=== PATIENT | female | born 1975 | race Caucasian/White ===

== ENCOUNTER 2016-05-08 18:25 | Inpatient (IN) | payer OTHER ==
[~2016-05-08] VITALS: Ht 162.6 cm; Wt 64.7 kg
[2016-05-08] VITALS (9 sets, daily range): BP systolic 79–83; BP diastolic 41–55; PULSE 70–82; RESP 14–24
[2016-05-08] MEDS ORDERED: ACETAMINOPHEN 500 MG TAB PO STA (19:10)
[2016-05-08] MEDS ORDERED: SOD CHLORIDE 0.9% 1,000 ML IV STA (19:10)
[2016-05-08 19:43] LABS: BASOPHILS % 0.1 % (0.0-2.0); HEMATOCRIT 37.2 % (37.0-47.0); HEMOGLOBIN 12.6 g/dl (12.0-16.0); LYMPHOCYTES # 0.6 10^3/ul (0.8-2.9); LYMPHOCYTES % 12.2 % (15.0-51.0); MEAN CORPUSCULAR HEMOGLOBIN 30.8 pg (29.0-33.0); MEAN CORPUSCULAR HGB CONC 33.7 g/dl (32.0-37.0); MEAN CORPUSCULAR VOLUME 91.2 fl (82.0-101.0); MEAN PLATELET VOLUME 10.4 fl (7.4-10.4); MONOCYTE # 0.2 10^3/ul (0.3-0.9); MONOCYTES % 3.6 % (0.0-11.0); NEUTROPHIL # 4.1 10^3/ul (1.6-7.5); NEUTROPHILS % 84.1 % (39.0-77.0); PLATELET COUNT 136 10^3/UL (140-440); RED BLOOD COUNT 4.08 10^6/ul (4.20-5.40); RED CELL DISTRIBUTION WIDTH 14.3 % (11.5-14.5); UNCORRECTED WBC 4.9 10^3/ul (4.8-10.8); WHITE BLOOD COUNT 4.9 10^3/ul (4.8-10.8)
[2016-05-08 19:50] LABS: ADD UMIC YES; URINE BILIRUBIN (Dip) 2+ (NEGATIVE); URINE BLOOD (Dip) 3+ (NEGATIVE); URINE GLUCOSE (Dip) NEGATIVE (NEGATIVE); URINE KETONES (Dip) TRACE (NEGATIVE); URINE LEUKOCYTE ESTERASE (Dip) TRACE (NEGATIVE); URINE NITRITE (Dip) NEGATIVE (NEGATIVE); URINE TOTAL PROTEIN (Dip) 2+ (NEGATIVE); URINE UROBILINOGEN (Dip) 4.0 E.U./dL (0.1-1.0)
[2016-05-08 20:01] LABS: ALBUMIN 3.5 g/dl (3.3-4.9)
[2016-05-08 20:04] LABS: BILIRUBIN,INDIRECT 0.6 mg/dl (0-1.1); BILIRUBIN,TOTAL 0.6 mg/dl (0.2-1.3); CREATININE 0.89 mg/dl (0.44-1.00)
[2016-05-08 20:05] LABS: ALBUMIN/GLOBULIN RATIO 1.2; CALCIUM 8.9 mg/dl (8.4-10.2); TOTAL PROTEIN 6.4 g/dl (6.1-8.1)
[2016-05-08 20:06] LABS: CONDITION 1; URINE COLOR RED (YELLOW)
[2016-05-08 20:10] LABS: BACTERIA,URINE FEW; ICTOTEST POSITIVE (NEGATIVE); SQUAMOUS EPITHELIAL CELL,UR MODERATE; URINE RBCS >200 /HPF (0)
--- NOTE | 2016-05-08 20:35 | RADRPT ---
PROCEDURE: US Pelvis. CLINICAL INDICATION: Abdominal pain. Status post elective with continued bleeding. TECHNIQUE: Multiple sonographic images of the pelvis were obtained utilizing a transabdominal and endovaginal technique. The images were reviewed on a PACS workstation. COMPARISON: No. FINDINGS: The uterus is visualized and measures 8.1 cm sagittal by 4.9 cm AP by 6 cm transverse. The uterus i s retroverted. The endometrial echo complex is heterogeneous and thickened measuring 1.6 cm. There is persistent bl ood flow within the endometrium. There is no evidence for free fluid. The right ovary has a normal echotexture and measures 2 x 2.6 b y 1.7 cm . The left ovary has a normal echotexture and measures 1.6 by 2.9 x 2.1 cm. There is a mo derate amount of free fluid in the pelvis. No adnexal masses are noted. IMPRESSION: 1. Thickening and increased vascularity of the endometrium which measures 1.6 cm consistent with re tained products of conception. 2. Retroverted uterus. 3. Moderate free fluid in the pelvis. No abnormal adnexal mass is identified. 4. Findings were phoned to Dr. Anaya Myles. RPTAT:AAJJ Physician Yehuda Date Time Electronically viewed and signed by Physician Yehuda on 05/08/2016 20:34 /
--- NOTE | 2016-05-08 20:54 | ERA ---
ER Documentation Chief Complaint Date/Time DATE: 05/08/16 TIME: 20:48 Chief Complaint GENERAL BODYACHES WITH FEVER FOR FEW DAYS. S/P ABO 05/01/16 HPI This is a 41-year-old female presents to the emergency department complaining of continued vaginal bleeding pelvic pain tactile fever shaking and chills and generalized myalgias for the past 24 hours. The patient recently underwent an elective at [facility] on . She was given medication on May 01, believed to be misoprostol and returned on May 02 to have the same medication given. The patient was instructed to return to the [facility] clinic on May 14 for repeat ultrasound to ensure there is no retained products of conception. However the patient indicates that she had her lower abdominal cramping has been so severe that is 10 out of 10 in intensity with continued vaginal bleeding using roughly 1 suprapubic absorbency pad every 4 hours. She took 800 mg of Motrin at 6 PM, 3 hours prior to arrival. She is not currently on antibiotics but stated she did receive a dose of antibiotics on May 02 2015 ROS All systems reviewed and are negative except as per history of present illness. PMhx/Soc Medical and Surgical Hx: pt denies Medical Hx, pt denies Surgical Hx History of Surgery: Yes ( on 04/30) Anesthesia Reaction: No Hx Neurological Disorder: No Hx Respiratory Disorders: No Hx Cardiac Disorders: No Hx Psychiatric Problems: No Hx Alcohol Use: No Hx Substance Use: No Hx Tobacco Use: No Smoking Status: Never smoker Physical Exam Vitals Vital Signs Date Time Temp Pulse Resp B/P Pulse Ox O2 Delivery O2 Flow Rate FiO2 05/08/16 18:29 100.5 105 21 117/61 100 Physical Exam Constitutional:Well-developed. Well-nourished. HEENT:Normocephalic. Atraumatic.Pupils were equal round reactive to light. Moist mucous membranes.No tonsillar exudates. No conjunctival pallor. Neck: No nuchal rigidity. No lymphadenopathy. No posterior cervical spine tenderness or step-offs. Respiratory: Not using accessory muscles of respiration.Lungs were clear to auscultation bilaterally. No rhonchi. No rales. No wheezing. Cardiovascular: Regular rate regular rhythm.No murmurs. No rubs were appreciated.S1, S2 normal. Distal pulses are palpable 2+ bilaterally. GI: Abdomen was soft. Suprapubic tenderness. Non Distended. No pulsatile abdominal masses or bruits. No rebound. No guarding. Bowel sounds were present and normal. Muscle skeletal: Full range of motion of both the upper and lower extremities bilaterally.Normal muscle tone.No assymetrical calf tenderness or swelling. Skin: No petechia, no purpura. No lesions on the palms or the soles of the feet. No maculopapular rash. NEURO: Patient was alert, awake, orientated x3.No facial droop. Gait observed and normal with no ataxia.Speech had regular rate and rhythm. No focal neurological deficits. Result Diagram: 05/08/16192905/08/161929 Results 24 hrs Laboratory Tests Test 05/08/16 19:30 Alanine Aminotransferase (ALT/SGPT) 140IU/L Albumin 3.5g/dl Albumin/Globulin Ratio 1.20 Alkaline Phosphatase 184IU/L Anion Gap 14 Aspartate Amino Transf (AST/SGOT) 169IU/L Basophils # 0.010^3/ul Basophils % 0.1% Blood Urea Nitrogen 12mg/dl Calcium Level 8.9mg/dl Carbon Dioxide Level 26mmol/L Chloride Level 100mmol/L Creatinine 0.89mg/dl Direct Bilirubin 0.00mg/dl Eosinophils # 0.010^3/ul Eosinophils % 0.0% Globulin 2.90g/dl Glucose Level 109mg/dl Hematocrit 37.2% Hemoglobin 12.6g/dl Indirect Bilirubin 0.6mg/dl Lactic Acid Level 1.2mmol/L Lipase 94U/L Lymphocytes # 0.610^3/ul Lymphocytes % 12.2% Mean Corpuscular Hemoglobin 30.8pg Mean Corpuscular Hemoglobin Concent 33.7g/dl Mean Corpuscular Volume 91.2fl Mean Platelet Volume 10.4fl Monocytes # 0.210^3/ul Monocytes % 3.6% Neutrophils # 4.110^3/ul Neutrophils % 84.1% Nucleated Red Blood Cells # 0.010^3/ul Nucleated Red Blood Cells % 0.0/100WBC Platelet Count 04335^3/UL Potassium Level 4.0mmol/L Red Blood Count 4.0810^6/ul Red Cell Distribution Width 14.3% Sodium Level 136mmol/L Total Bilirubin 0.6mg/dl Total Protein 6.4g/dl Urine Bacteria FEW Urine Bilirubin 2+ Urine Clarity BLOODY Urine Color RED Urine Glucose NEGATIVE% Urine Hemoglobin 3+ Urine Ictotest POSITIVE Urine Ketones TRACE Urine Leukocyte Esterase TRACE Urine Microscopic RBC >200/HPF Urine Microscopic WBC 5-10/HPF Urine Nitrite NEGATIVE Urine Specific [place] 1.020 Urine Squamous Epithelial Cells MODERATE Urine Total Protein 2+ Urine Urobilinogen 4.0 E.U./dL Urine pH 5.5 White Blood Count 4.910^3/ul Current Medications Medications (Trade) Dose Ordered Sig/Florinda Route PRN Reason Start Time Stop Time Status Last Admin Dose Admin Sodium Chloride (NS) 1,000 ml @ 1,000 mls/hr Q1H STAT IV 05/08/16 19:10 05/08/16 20:09 DC 05/08/16 19:32 Acetaminophen (Tylenol Tab) 1,000 mg ONCE STAT PO 05/08/16 19:10 05/08/16 19:13 DC 05/08/16 19:32 Procedures/MDM This patient presented to the emergency department after an elective given misoprostol however the patient continued to have significant abdominal pain and a low-grade fever which was concerning for septic . The patient was given IV fluids and influenza was positive therefore she was given Tamiflu. The ultrasound was reviewed by myself as well as the [facility] Dr. Khan. The patient was given IV antibiotics in the emergency department after blood cultures and urine culture was obtained. She was given IV doxycycline and cefoxitin. Dr. Khan kindly stated she will admit the patient to [facility] for dilation and curettage to remove the retained products of conception. Departure Diagnosis: Primary Impression: Retained products of conception Additional Impression: Influenza Condition: Serious ALRYNRYANNEA May 08, 2016 20:54
[2016-05-08] MEDS ORDERED: ONDANSETRON 4 MG INJ IV PRN ×3 (21:00→23:30)
[2016-05-08] MEDS ORDERED: CEFOTAXIME 2 GM/50 ML (PMX) 50 ML IVPB ONE (21:00)
[2016-05-08] MEDS ORDERED: OSELTAMIVIR 75 MG CAP PO ONE (21:00)
[2016-05-08] MEDS ORDERED: DOXYCYCLINE 100 MG in SOD CHLORIDE 0.9% 250 ML IVPB SCH (21:00)
[2016-05-08] MEDS ORDERED: ACETAMINOPHEN 325 MG TAB PO PRN (21:00)
[2016-05-08 21:25] LABS: INR 1.38; PT RATIO 1.3
[2016-05-08 21:26] LABS: PARTIAL THROMBOPLASTIN TIME 32.1 Sec (25.0-35.0)
--- NOTE | 2016-05-08 21:51 | HP ---
Date/Time of Note Date/Time of Note DATE: 05/08/16 TIME: 21:34 Assessment/Plan VTE Prophylaxis VTE Prophylaxis Intervention: ambulation Assessment/Plan Chief Complaint/Hosp Course 1) Retained Products of Conception s/p medical 2) Influenza Problems: Assessment/Plan 1) Retained POC -Discussed with pt results of U/S. Given concern for retained products of conception, recommend evacuating the uterus with suction D&C and sharp curettage. Risks, benefits and alternatives of planned procedure were discussed with the patient in detail, including the risks of pain, infection, damage to nearby organs/tissues/structures, uterine perforation possibly requiring exploratory laparotomy and bleeding possibly requiring blood transfusion or hysterectomy. Blood transfusion risks, including infectious risks and transfusion-related reactions also discussed. Written consent for procedure obtained. NPO in anticipation of procedure -Given unclear clinical picture of septic vs retained POCs with influenza, will treat w/IV Abx as well. Pt started on Cefoxitin 2g IV q6 and Doxycycline 100mg IV q12 -Blood and urine cultures obtained prior to starting Abx -STI panel per pt request 2) Influenza -Pt with positive rapid flu test. Started on Tamiflu -Tylenol prn fever Plan d/w pt. Questions answered to patient's satisfaction. HPI/ROS Admit Date/Time Admit Date/Time Hx of Present Illness GYNECOLOGY ADMISSION H&P Pt is a 41yo who presents 7d s/p medical AB at [facility] for undesired IUP at <6wks. Pt states she has been having lower abdominal cramping and fevers for the last 2 days. Highest temperature was 104 at home yesterday which trended downwards with Ibuprofen and cool showers. Vaginal bleeding has continued since the procedure. Pt also reports general malaise and body aches. Denies cough or congestion. PMHx: Denies PSHx: Breast augmentation OB Hx: FT x1 w/son's at 3yo from meningitis, SAB x2, MAB x1 on 05/01 and 05/02. 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 Heavy bleeding. Using OCPs for contraception. New partner, not using condoms. Pt and partner reportedly each had neg STI screen prior to first sexual encounters. PROCEDURE: US Pelvis. CLINICAL INDICATION: Abdominal pain. Status post elective with continued bleeding. TECHNIQUE: Multiple sonographic images of the pelvis were obtained utilizing a transabdominal and endovaginal technique. The images were reviewed on a PACS workstation. COMPARISON: No. FINDINGS: The uterus is visualized and measures 8.1 cm sagittal by 4.9 cm AP by 6 cm transverse. The uterus is retroverted. The endometrial echo complex is heterogeneous and thickened measuring 1.6 cm. There is persistent blood flow within the endometrium. There is no evidence for free fluid. The right ovary has a normal echotexture and measures 2 x 2.6 by 1.7 cm . The left ovary has a normal echotexture and measures 1.6 by 2.9 x 2.1 cm. There is a moderate amount of free fluid in the pelvis. No adnexal masses are noted. IMPRESSION: 1. Thickening and increased vascularity of the endometrium which measures 1.6 cm consistent with retained products of conception. 2. Retroverted uterus. 3. Moderate free fluid in the pelvis. No abnormal adnexal mass is identified. PMH/Family/Social Past Medical History Medical History: no pertinent history Past Surgical History Past Surgical Hx: other (as per HPI) Family History Significant Family History: no pertinent family hx Social History Alcohol Use: none Smoking Status: Never smoker Drug Use: none Exam/Review of Systems Vital Signs Vitals Vital Signs Date Time Temp Pulse Resp B/P Pulse Ox O2 Delivery O2 Flow Rate FiO2 05/08/16 18:29 100.5 105 21 117/61 100 Exam Constitutional: alert, oriented, No distress Psych: nl mood/affect Respiratory: clear to auscultation Cardiovascular: regular rate and rhythm Gastrointestinal: bowel sounds, soft, tender (mild TTP lower quadrants diffusely), No distended, No firm, No mass, No rebound or guarding, No surgical scars Genitourinary - Female: nl adnexae, nl external genitalia, uterus (small, 6wk size uterus, mild fundal tenderness on BME), No CMT Extremities: No edema Neurological: nl mental status, nl speech Skin: No rash or lesions Labs Result Diagram: 05/08/16192905/08/161929 Medications Medications Current Medications Doxycycline Hyclate/Sodium Chloride (Vibramycin/NS) 250 ml @ 250 mls/hr ONCE IVPB ; Start 05/08/16 at 21:00 RONNY HANSON MD May 08, 2016 21:44
[2016-05-08] MEDS ORDERED: PROPOFOL 20 ML ONE (22:46)
[2016-05-08] MEDS ORDERED: FENTAnyl 50 MCG/ML VIAL ONE (22:46)
[2016-05-08] MEDS ORDERED: MIDAZOLAM 1 MG/ML 2 ML INJ ONE (22:46)
[2016-05-08] MEDS ORDERED: PHENYLephrine (100 MCG/ML) 5ML SYG ONE (22:54)
[2016-05-08] MEDS ORDERED: ONDANSETRON 4 MG INJ ONE (23:02)
[2016-05-08] MEDS ORDERED: DEXAMETHASONE 4 MG/ML 1 ML INJ ONE (23:03)
[2016-05-08] MEDS ORDERED: KETOROLAC 30 MG INJ ONE (23:03)
[2016-05-08] MEDS ORDERED: METOCLOPRAMIDE 10 MG INJ ONE (23:03)
--- NOTE | 2016-05-08 23:21 | OPR ---
Date/Time of Note Date/Time of Note DATE: 05/08/16 TIME: 23:16 Operative Report Procedure Date: May 08, 2016 Preoperative Diagnosis Retained Products of Conception Postoperative Diagnosis Retained Products of Conception Operation Performed Dilation and Curettage with suction and sharp curettage Surgeon: RONNY ALBERT MD Anesthesia: general Anesthesiologist: TEODORO MAX MD Estimated Blood Loss: 0 - 10 ml's Specimens Uterine curettings Complications: None Pt Condition Post Procedure: stable Disposition: PACU Indications 41yo presented to the ED 7d post medical with increasing abdominal pain and vaginal bleeding in the setting of fevers. Pelvic ultrasound revealed a thickened endometrial stripe concerning for retained products of conception. Pt also diagnosed with influenza. Operative Findings Products of conception noted in the suction tubing during the procedure. All four quadrants of the uterus was found to have a gritty texture following the procedure. Procedure Description The patient was brought to the operating room with an IV in place, placed on the operating room table in supine position and general anesthesia was adminstered. She was positioned in annmarie stirrups and prepped and draped in the normal sterile fashion. The bladder was emptied using a red albert catheter. A weighted speculum was placed in the vaginal vault. The cervix was grasped with a single-toothed tenaculum at the 12 o'clock position and the cervix was serially dilated easily to accommodate a 7mm rigid curette. The uterus was evacuated using the electric suction device. A sharp curet was also used to gently scrape the uterus. Currettings were collected on a Telfa pad and handed off the field to be sent to pathology along with the specimen from the suction device. The tenaculum was removed and the tenaculum sites were noted to be hemostatic. Minimal vaginal bleeding was noted and the speculum was removed. The patient's perineum was cleaned and her legs were brought back down to the full supine position. She was awakened and transported to the recovery room in excellent condition. RONNY ALBERT MD May 08, 2016 23:21
[2016-05-08] MEDS ORDERED: MEPERIDINE 25 MG INJ IV PRN (23:30)
[2016-05-08] MEDS ORDERED: HYDROmorphONE (0.2 MG/ML) 10ML SYG IV PRN ×2 (23:30)
[2016-05-08] MEDS ORDERED: morphine (1 MG/ML) 10ML SYRINGE IV PRN ×3 (23:30)
[2016-05-08] MEDS ORDERED: DIPHENHYDRAMINE 50 MG INJ IV PRN (23:30)
[2016-05-08] MEDS ORDERED: ACETAMINOPHEN 500 MG TAB PO PRN (23:30)
[2016-05-09] VITALS (9 sets, daily range): BP systolic 79–104; BP diastolic 45–55; PULSE 74–90; RESP 16–25; Ht 162.6 cm; Wt 64.7 kg
[2016-05-09] MEDS ORDERED: EPHEDrine SULFATE 50 MG/5 ML SYG ONE (00:20)
--- NOTE | 2016-05-09 05:47 | QN ---
Documentation Comment [employer]ETING [employer]JECT LEAD AST and ALT noted to be elevated. Hep panel ordered and CMP to be repeated this AM. RONNY HANSON MD May 09, 2016 05:46
[2016-05-09] MEDS ORDERED: CEFOTAXIME 1 GM INJ IM SCH (06:00)
[2016-05-09] MEDS: LACTATED RINGER'S 1,000 ML IV SCH ×3 (06:03→18:36)
[2016-05-09 06:12] LABS: HAAIG REFLEX REFLEX FILED
[2016-05-09 06:30] LABS: BASOPHILS % 0.1 % (0.0-2.0); HEMATOCRIT 33.5 % (37.0-47.0); HEMOGLOBIN 11.4 g/dl (12.0-16.0); LYMPHOCYTES # 1.1 10^3/ul (0.8-2.9); MEAN CORPUSCULAR HEMOGLOBIN 30.8 pg (29.0-33.0); MEAN CORPUSCULAR HGB CONC 33.9 g/dl (32.0-37.0); MEAN CORPUSCULAR VOLUME 90.9 fl (82.0-101.0); MEAN PLATELET VOLUME 10.9 fl (7.4-10.4); MONOCYTES % 0.8 % (0.0-11.0); NEUTROPHIL # 4.4 10^3/ul (1.6-7.5); NEUTROPHILS % 79.1 % (39.0-77.0); PLATELET COUNT 117 10^3/UL (140-440); RED BLOOD COUNT 3.69 10^6/ul (4.20-5.40); RED CELL DISTRIBUTION WIDTH 14.4 % (11.5-14.5); UNCORRECTED WBC 5.5 10^3/ul (4.8-10.8); WHITE BLOOD COUNT 5.5 10^3/ul (4.8-10.8)
[2016-05-09] MEDS ORDERED: CEFOTAXIME 1 GM/50 ML (PMX) 50 ML IVPB SCH (06:30)
[2016-05-09 06:34] LABS: CONDITION 1
--- NOTE | 2016-05-09 06:49 | DS ---
Date/Time of Note Date/Time of Note DATE: 05/09/16 TIME: 06:45 Discharge Summary Admission/Discharge Info Admit Date/Time May 09, 2016 at 01:40 Discharge Date/Time May 13, 2016 at 16:00 Final Diagnosis 1) Retained Products of Conception 2) Influenza 3) Urosepsis Patient Condition: Good Consults Dr. Uday Rivera, Infectious Disease Procedures Dilation and Curettage Hx of Present Illness Pt is a 41yo who presented to the ED 7d s/p medical AB at [facility] for undesired intrauterine at <6wks. Pt c/o lower abdominal cramping and fevers for 2 days. Highest temperature was 104 at home on the day prior to admission which trended downwards with Ibuprofen and cool showers. Vaginal bleeding has continued since the procedure. On presentation, pt also reports general malaise and body aches. Denies cough or congestion. PMHx: Denies PSHx: Breast augmentation OB Hx: FT x1 w/son's at 3yo from meningitis, SAB x2, MAB x1 on 05/01 and 05/02. 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 Heavy bleeding. Using OCPs for contraception. New partner, not using condoms. Pt and partner reportedly each had neg STI screen prior to first sexual encounters. PROCEDURE: US Pelvis. CLINICAL INDICATION: Abdominal pain. Status post elective with continued bleeding. TECHNIQUE: Multiple sonographic images of the pelvis were obtained utilizing a transabdominal and endovaginal technique. The images were reviewed on a PACS workstation. COMPARISON: No. FINDINGS: The uterus is visualized and measures 8.1 cm sagittal by 4.9 cm AP by 6 cm transverse. The uterus is retroverted. The endometrial echo complex is heterogeneous and thickened measuring 1.6 cm. There is persistent blood flow within the endometrium. There is no evidence for free fluid. The right ovary has a normal echotexture and measures 2 x 2.6 by 1.7 cm . The left ovary has a normal echotexture and measures 1.6 by 2.9 x 2.1 cm. There is a moderate amount of free fluid in the pelvis. No adnexal masses are noted. IMPRESSION: 1. Thickening and increased vascularity of the endometrium which measures 1.6 cm consistent with retained products of conception. 2. Retroverted uterus. 3. Moderate free fluid in the pelvis. No abnormal adnexal mass is identified. Hospital Course Pt received IV antibiotics in the ED and the first dose of Tamiflu and was taken to the OR for an uncomplicated D&C. The specimen was sent to Pathology. Blood and Urine cultures obtained in the ED grew Strep Pyogenes, Group A. For urosepsis, an Infectious disease consult was requested and the patient was initially started on Ceftriaxone and Clindamycin. The latter was d/c'd after one day, however the patient was continued on IV Ceftriaxone and Tamiflu during the remainder of the hospital course and has remained afebrile. At the time of discharge, the patient had resolved abdominal pain and scant vaginal bleeding. Her platelets, which had initially trended downwards were trending upwards and AST/ALT were elevated and relatively stable at 84/105. Anemia was noted with a Hgb of 10.4. Repeat Blood Cultures showed No Growth To Date x2 days. Home health nursing was arranged for the remaining doses of Ceftriaxone. The patient will also complete a 7 day course of Tamiflu. The patient has been instructed to follow-up with her primary care doctor within the next week and [employer]OOK[employer] ST[employer]ER this week as scheduled for contraception. Follow-up Plan Pt is advised to keep her appointment at [facility] for follow-up on and to initiate contraception. She should follow-up with a [employer] BOOKED [employer] STITCHER 2 weeks thereafter and/or for contraception, if she is unable to obtain her desired method at the PP follow-up. She should follow-up with her PCP within 1 week. Pending Labs Laboratory Tests Test 05/08/16 19:30 05/08/16 21:00 05/08/16 22:00 05/09/16 04:55 Alanine Aminotransferase (ALT/SGPT) 140IU/L (13-69) Pending Albumin 3.5g/dl (3.3-4.9) Pending Albumin/Globulin Ratio 1.20 Pending Alkaline Phosphatase 184IU/L (42-121) Pending Anion Gap 14 (8-16) Pending Aspartate Amino Transf (AST/SGOT) 169IU/L (15-46) Pending Basophils # 0.010^3/ul (0.0-0.1) 0.010^3/ul (0.0-0.1) Basophils % 0.1% (0.0-2.0) 0.1% (0.0-2.0) Blood Urea Nitrogen 12mg/dl (7-20) Pending Calcium Level 8.9mg/dl (8.4-10.2) Pending Carbon Dioxide Level 26mmol/L (21-31) Pending Chloride Level 100mmol/L (97-110) Pending Creatinine 0.89mg/dl (0.44-1.00) Pending Direct Bilirubin 0.00mg/dl (0.00-0.20) Pending Eosinophils # 0.010^3/ul (0.0-0.5) 0.010^3/ul (0.0-0.5) Eosinophils % 0.0% (0.0-7.0) 0.0% (0.0-7.0) Globulin 2.90g/dl (1.3-3.2) Pending Glucose Level 109mg/dl (70-220) Pending Hematocrit 37.2% (37.0-47.0) 33.5% (37.0-47.0) Hemoglobin 12.6g/dl (12.0-16.0) 11.4g/dl (12.0-16.0) Indirect Bilirubin 0.6mg/dl (0-1.1) Pending Lactic Acid Level 1.2mmol/L (0.5-2.2) Lipase 94U/L (23-300) Lymphocytes # 0.610^3/ul (0.8-2.9) 1.110^3/ul (0.8-2.9) Lymphocytes % 12.2% (15.0-51.0) 20.0% (15.0-51.0) Mean Corpuscular Hemoglobin 30.8pg (29.0-33.0) 30.8pg (29.0-33.0) Mean Corpuscular Hemoglobin Concent 33.7g/dl (32.0-37.0) 33.9g/dl (32.0-37.0) Mean Corpuscular Volume 91.2fl (82.0-101.0) 90.9fl (82.0-101.0) Mean Platelet Volume 10.4fl (7.4-10.4) 10.9fl (7.4-10.4) Monocytes # 0.210^3/ul (0.3-0.9) 0.010^3/ul (0.3-0.9) Monocytes % 3.6% (0.0-11.0) 0.8% (0.0-11.0) Neutrophils # 4.110^3/ul (1.6-7.5) 4.410^3/ul (1.6-7.5) Neutrophils % 84.1% (39.0-77.0) 79.1% (39.0-77.0) Nucleated Red Blood Cells # 0.010^3/ul (0.0-0.0) 0.010^3/ul (0.0-0.0) Nucleated Red Blood Cells % 0.0/100WBC (0.0-0.0) 0.0/100WBC (0.0-0.0) Platelet Count 15199^3/UL (140-440) 91929^3/UL (140-440) Potassium Level 4.0mmol/L (3.5-5.1) Pending Red Blood Count 4.0810^6/ul (4.20-5.40) 3.6910^6/ul (4.20-5.40) Red Cell Distribution Width 14.3% (11.5-14.5) 14.4% (11.5-14.5) Sodium Level 136mmol/L (135-144) Pending Total Bilirubin 0.6mg/dl (0.2-1.3) Pending Total Protein 6.4g/dl (6.1-8.1) Pending Urine Bacteria FEW Urine Bilirubin 2+ (NEGATIVE) Urine Clarity BLOODY (CLEAR) Urine Color RED (YELLOW) Urine Glucose NEGATIVE% (NEGATIVE) Urine Hemoglobin 3+ (NEGATIVE) Urine Ictotest POSITIVE (NEGATIVE) Urine Ketones TRACE (NEGATIVE) Urine Leukocyte Esterase TRACE (NEGATIVE) Urine Microscopic RBC >200/HPF (0) Urine Microscopic WBC 5-10/HPF (0) Urine Nitrite NEGATIVE (NEGATIVE) Urine Specific [place] 1.020 (1.003-1.030) Urine Squamous Epithelial Cells MODERATE Urine Total Protein 2+ (NEGATIVE) Urine Urobilinogen 4.0 E.U./dL (0.1-1.0) Urine pH 5.5 (5.0-9.0) White Blood Count 4.910^3/ul (4.8-10.8) 5.510^3/ul (4.8-10.8) Activated Partial Thromboplast Time 32.1Sec (25.0-35.0) Beta HCG, Quantitative 859.4mIU/ml INR International Normalized Ratio 1.38 Prothrombin Time 17.0Sec (12.2-14.2) Prothrombin Time Ratio 1.3 HIV (1&2) Antibody NEGATIVE (NEGATIVE) Blood Morphology Comment Hepatitis B Core Total Antibody Pending Hepatitis B Surface Antigen Pending Hepatitis C Antibody Pending Microbiology Date/Time Source Procedure Growth Status 05/08/16 19:30 Nasopharyngeal Influenza Types A,B Direct EIA - Final Complete RONNY HANSON MD May 09, 2016 06:49
--- NOTE | 2016-05-09 06:51 | PD.PPDC ---
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 Follow-up with CVT RN 2 weeks after [facility] appointment.) Return to clinic for CVT RN Instructions: Fever greater than 101 Chills Worsening abdominal pain Excessive Vaginal Bleeding More than 2 pads per hour Unable to tolerate diet RONNY HANSON MD May 09, 2016 06:51
[2016-05-09] MEDS ORDERED: CEPASTAT LOZENGE MT PRN (07:00)
[2016-05-09 07:24] LABS: ANION GAP 11 (8-16); POTASSIUM 4.2 mmol/L (3.5-5.1); SODIUM 140 mmol/L (135-144)
[2016-05-09 07:25] LABS: ALANINE AMINOTRANSFERASE 96 IU/L (13-69); ALBUMIN 2.7 g/dl (3.3-4.9); ALKALINE PHOSPHATASE 136 IU/L (42-121); ASPARTATE AMINO TRANSFERASE 88 IU/L (15-46); BILIRUBIN,INDIRECT 0.5 mg/dl (0-1.1); BILIRUBIN,TOTAL 0.5 mg/dl (0.2-1.3); BLOOD UREA NITROGEN 9 mg/dl (7-20); CARBON DIOXIDE 24 mmol/L (21-31); CHLORIDE 109 mmol/L (97-110); CREATININE 0.72 mg/dl (0.44-1.00); GLUCOSE 150 mg/dl (70-220); TOTAL PROTEIN 5.4 g/dl (6.1-8.1)
[2016-05-09 07:26] LABS: CALCIUM 8.5 mg/dl (8.4-10.2)
[2016-05-09 08:29] LABS: HEPATITIS B CORE ANTIBODY NEGATIVE (NEGATIVE)
[2016-05-09] MEDS: OSELTAMIVIR 75 MG CAP PO SCH ×2 (08:47→20:55)
[2016-05-09] MEDS ORDERED: DOXYCYCLINE 100 MG TAB PO SCH (09:00)
[2016-05-09] MEDS ORDERED: CEFOTAXIME 1 GM INJ IVPB SCH (14:00)
--- NOTE | 2016-05-09 14:14 | QN ---
Documentation Comment Laborist S/P D and C for retained POC after a TAB at [facility]. Pt was febrile on admission and had elevated LFT's. She also tested positive in the ER for influenza B. Pt still has some pelvic pain/tenderness. Pt appears well otherwise. T=97.6 (last febrile at 1800 on 05/08) BP= 90/55. Abdomen soft, trace tenderness above pubis. Minimal bleeding noted. Extremities NT, no skin changes. WBC 5.5. Hgb 11.4. Plts 117K ( decreasing). ALT/AST 96/88 (improving). Urine cx + for strep pyogenes. Blood cx + for gram positive cocci. P: Called infectious disease consult. Spoke to the [employer] [facility] (for Dr Rivera) who will come to see her today. Questions asked were which antibiotics to change to, duration of IV antibiotic therapy. She is changing her to Rocephin and Clindamycin ( the second, per my request). Tamiflu needs to be continued x 7 days. IV therapy will be continued for a long period of time (2 weeks?), pending final ID of the blood culture. Also agreed that we could d/c the Doxycycline. Will repeat all labs in the morning. PRIYANKA SORENSEN MD May 09, 2016 14:13
[2016-05-09] MEDS: CLINDAMYCIN 900 MG/D5W (PMX) 50 ML IVPB SCH ×2 (15:35→22:08)
[2016-05-09] MEDS: CEFTRIAXONE 2 GM/50 ML (PMX) 50 ML IVPB SCH (15:35)
[2016-05-09] MEDS: LACTOBACILLUS CHEW TAB PO SCH ×2 (15:36→20:55)
--- NOTE | 2016-05-09 16:38 | CONS ---
DATE OF ADMISSION: 05/09/2016 DATE OF CONSULTATION: 05/09/2016 TYPE OF CONSULTATION: Infectious Disease. REASON FOR CONSULTATION: Antibiotic management. HISTORY OF PRESENT ILLNESS: Katarina Chery is a 41-year-old female who comes in with retained produ cts of conception, status post medical . Patient is a 41-year-old 4, para 1 who pre sents 7 days status post medical at [facility] for undesired at less than 6 weeks. She has been having lower abdominal cramping and fevers for the last 2 days prior to admi ssion with a temperature of 104 at home on 05/07/2016. She has been taking ibuprofen and cold showe rs. Vaginal bleeding has continued since the procedure. She reports general malaise and body aches . Denies cough or congestion. PAST MEDICAL HISTORY: Breast augmentation. Gives a history that her son of meningitis at 3 ye ars old. An ultrasound of the pelvis showed multiple sonographic images of the pelvis, showing thickened and increased vascularity of the endometrium which measures 1.6 cm, consistent with retained products o f conception, retroverted uterus, moderate free fluid in the pelvis. No abnormal adnexal mass. On 05/08/2016, she was taken to the operating room and she had a dilatation and curettage with suction and sharp curettage, and she tolerated the procedure very well. She is status post D and C. She te sted positive for influenza B in the emergency room. She still has some pelvic pain. We were dennis d. Her white count was 5.5, hemoglobin 11.4. Her ALT, AST were improving. Urine cultures positive for strep pyogenes. Blood cultures were positive with gram-positive cocci. PAST SURGICAL HISTORY: Operations as outlined. FAMILY HISTORY: Noncontributory. SOCIAL HISTORY: She does not smoke, drink or abuse drugs. ALLERGIES: NONE TO PENICILLIN, SULFA OR FOODS. MEDICATIONS: Per chart. REVIEW OF SYSTEMS: As per HPI. PHYSICAL EXAMINATION: GENERAL: The patient is a well-developed, well-nourished female who is alert, responsive, in no acu te distress. VITAL SIGNS: Stable. She is afebrile. SKIN: Without generalized rash. HEENT: Within normal limits. NECK: Supple. LYMPH NODES: None palpable. CHEST: Decreased breath sounds at the bases. HEART: Without murmur or gallop. ABDOMEN: Soft, somewhat tender suprapubically without organosplenomegaly or masses. EXTREMITIES: Without cyanosis, clubbing, or edema. RECTAL AND GENITAL: Deferred. NEUROLOGIC: No focal neurological abnormality. IMPRESSION AND PLAN: Will start the patient on clindamycin and ceftriaxone. She has a urosepsis wi th strep pyogenes, group A strep, which is only sensitive to penicillin. SHE IS NOT ALLERGIC TO ANY THING. We can discontinue the clindamycin tomorrow, continue her on ceftriaxone. Dictated By: JASVIR ORDONEZ MD, JD/JOE Conf#: [id number] DID#: [id number]
[2016-05-10 06:00] LABS: ALBUMIN 2.8 g/dl (3.3-4.9)
[2016-05-10 06:01] LABS: POTASSIUM 3.1 mmol/L (3.5-5.1)
[2016-05-10 06:03] LABS: ALBUMIN/GLOBULIN RATIO 1.16; BILIRUBIN,INDIRECT 0.1 mg/dl (0-1.1); BILIRUBIN,TOTAL 0.1 mg/dl (0.2-1.3); CREATININE 0.73 mg/dl (0.44-1.00); TOTAL PROTEIN 5.2 g/dl (6.1-8.1)
[2016-05-10 06:04] LABS: CALCIUM 8.2 mg/dl (8.4-10.2)
[2016-05-10] MEDS: CLINDAMYCIN 900 MG/D5W (PMX) 50 ML IVPB SCH ×2 (06:05→13:48)
[2016-05-10] MEDS: LACTATED RINGER'S 1,000 ML IV SCH (06:05)
[2016-05-10 06:53] LABS: HEMATOCRIT 29.6 % (37.0-47.0); HEMOGLOBIN 10.1 g/dl (12.0-16.0); LYMPHOCYTES # 2.4 10^3/ul (0.8-2.9); LYMPHOCYTES % 51.5 % (15.0-51.0); MEAN CORPUSCULAR HEMOGLOBIN 31.1 pg (29.0-33.0); MEAN CORPUSCULAR HGB CONC 34.2 g/dl (32.0-37.0); MEAN CORPUSCULAR VOLUME 90.7 fl (82.0-101.0); MEAN PLATELET VOLUME 11.3 fl (7.4-10.4); MONOCYTE # 0.3 10^3/ul (0.3-0.9); MONOCYTES % 5.5 % (0.0-11.0); PLATELET COUNT 128 10^3/UL (140-440); RED BLOOD COUNT 3.26 10^6/ul (4.20-5.40); RED CELL DISTRIBUTION WIDTH 14.4 % (11.5-14.5); UNCORRECTED WBC 4.7 10^3/ul (4.8-10.8); WHITE BLOOD COUNT 4.7 10^3/ul (4.8-10.8)
[2016-05-10 07:00] VITALS: BP 99/58; RESP 20
[2016-05-10 07:15] LABS: CONDITION 1; LH ANALYZER COMMENTS 1
[2016-05-10] MEDS: OSELTAMIVIR 75 MG CAP PO SCH ×2 (09:09→20:46)
[2016-05-10] MEDS: LACTOBACILLUS CHEW TAB PO SCH ×3 (09:09→20:46)
[2016-05-10] MEDS: LACTATED RINGER S IV SCH ×2 (15:00→22:00)
[2016-05-10] MEDS: CEFTRIAXONE 2 GM/50 ML (PMX) 50 ML IVPB SCH (15:00)
[2016-05-10] MEDS: POTASSIUM CHLORIDE IV SCH ×2 (15:00→22:00)
[2016-05-10] MEDS: IBUPROFEN 600 MG TAB PO PRN (17:01)
--- NOTE | 2016-05-10 18:51 | PN ---
DATE: 05/10/2016 SUBJECTIVE: No acute changes. The patient is alert, feels good, looks comfortable, no fevers overn ight. MICROBIOLOGY: Blood and urine culture growing Strep pyogenes group A with pending susceptibilities. Influenza swab was positive for influenza B. ANTIMICROBIALS: The patient is on Rocephin, clindamycin and Tamiflu. PHYSICAL EXAMINATION: GENERAL: This is a well-nourished, well-developed middle-aged woman who is alert, in no distress. HEENT: Head atraumatic, normocephalic. Sclerae anicteric. Buccal mucosa pink. NECK: Supple. CHEST: Rise symmetrical. Breath sounds clear. HEART: S1, S2. ABDOMEN: Soft. Bowel tones present. EXTREMITIES: Without cyanosis. ASSESSMENT: 1. Strep pyogenes bacteremia secondary to urinary tract infection. 2. Influenza B. 3. Status post dilation and curettage for part of conception. PLAN: The patient remains stable. We are going to repeat blood cultures, discontinue clindamycin. Keep her on Rocephin, continue Tamiflu for 7 days. Once blood cultures negative, will discuss disc harge planning. The patient will need to be on IV antibiotics for at least 7 days after which we wi ll switch her to p.o. We will await for final sensitivities. Dictated By: SRIDEVI PRAKASH FLATWORK PRESSER for JASVIR JACKSON/JOE Conf#: [id number] DID#: [id number]
[2016-05-10 20:53] VITALS: BP 103/55; PULSE 74; RESP 20
--- NOTE | 2016-05-10 23:45 | QN ---
Documentation Comment HD #2 s/p incomplete AB and with sepsis either due to urosepsis as urine and blood cx's with the same bacteria or the sepsis could have emanated from her uterus. Culprit is Group A strep pyogenes. Currently on Rocephin, Clindamycin d /lucia today. Pt appears well and in good spirits. Pt states she is feeling better and much less weak. T= 98.4, BP 103/55. Plts were 128K (increasing after heading down). Hgb 10. ALT/AST 99/97 which is actually slightly higher than yesterday. K+ was 3.1 so supplemented her IVF's with K+. Continuing care and appreciating infectious disease input. Labs to be repeated in the AM. Pt states she may be able to complete her 7 days of IV therapy at home as long as her labs normalize first. She will be completing a 14 day course of p.o. ABX once the IV therapy is completed. PRIYANKA SORENSEN MD May 10, 2016 23:45
[2016-05-11] MEDS: LACTATED RINGER S IV SCH ×4 (03:06→14:00)
[2016-05-11] MEDS: POTASSIUM CHLORIDE IV SCH ×4 (03:06→14:00)
[2016-05-11 06:08] LABS: POTASSIUM 4.2 mmol/L (3.5-5.1)
[2016-05-11 06:10] LABS: ALBUMIN/GLOBULIN RATIO 1.25; CREATININE 0.75 mg/dl (0.44-1.00); TOTAL PROTEIN 5.4 g/dl (6.1-8.1)
[2016-05-11 06:11] LABS: CALCIUM 8.9 mg/dl (8.4-10.2)
[2016-05-11 07:00] VITALS: BP 128/60; RESP 18
[2016-05-11] MEDS: OSELTAMIVIR 75 MG CAP PO SCH ×2 (09:19→20:46)
[2016-05-11] MEDS: LACTOBACILLUS CHEW TAB PO SCH ×3 (09:19→20:46)
[2016-05-11] MEDS: IBUPROFEN 600 MG TAB PO PRN (10:48)
[2016-05-11 10:55] LABS: HEMATOCRIT 30.6 % (37.0-47.0); HEMOGLOBIN 10.4 g/dl (12.0-16.0); LYMPHOCYTES % 70.6 % (15.0-51.0); MEAN CORPUSCULAR HEMOGLOBIN 30.6 pg (29.0-33.0); MEAN PLATELET VOLUME 11.7 fl (7.4-10.4); NEUTROPHILS % 16.7 % (39.0-77.0); PLATELET COUNT 178 10^3/UL (140-440); RED CELL DISTRIBUTION WIDTH 13.9 % (11.5-14.5); WHITE BLOOD COUNT 5.2 10^3/ul (4.8-10.8)
[2016-05-11 10:56] LABS: BASOPHILS % 0.4 % (0.0-2.0); EOSINOPHILS # 0.1 10^3/ul (0.0-0.5); EOSINOPHILS % 1.7 % (0.0-7.0); LYMPHOCYTES # 3.7 10^3/ul (0.8-2.9); MONOCYTE # 0.3 10^3/ul (0.3-0.9); MONOCYTES % 7.1 % (0.0-11.0); NEUTROPHIL # 0.9 10^3/ul (1.6-7.5)
--- NOTE | 2016-05-11 14:35 | CONS ---
Date/Time of Note Date/Time of Note DATE: 05/11/16 TIME: 14:34 Assessment/Plan Assessment/Plan Chief Complaint/Hosp Course SUBJECTIVE: No acute changes. The patient is alert, feels good, looks comfortable, no fevers overnight. MICROBIOLOGY: Blood and urine culture growing Strep pyogenes group A with pending susceptibilities. Influenza swab was positive for influenza B. ANTIMICROBIALS: Rocephin, Tamiflu. PHYSICAL EXAMINATION: GENERAL: This is a well-nourished, well-developed middle-aged woman who is alert, in no distress. HEENT: Head atraumatic, normocephalic. Sclerae anicteric. Buccal mucosa pink. NECK: Supple. CHEST: Rise symmetrical. Breath sounds clear. HEART: S1, S2. ABDOMEN: Soft. Bowel tones present. EXTREMITIES: Without cyanosis. ASSESSMENT: 1. Strep pyogenes bacteremia secondary to urinary tract infection. 2. Influenza B. 3. Status post dilation and curettage for part of conception. PLAN: The patient remains stable. Continue abx, f/u repeat blood cultures, complete Tamiflu for total of 7 days. DW staff Problems: Consultation Date/Type/Reason Admit Date/Time May 09, 2016 at 01:40 Initial Consult Date Type of Consultation: ID Exam/Review of Systems Vital Signs Vitals Vital Signs Date Time Temp Pulse Resp B/P Pulse Ox O2 Delivery O2 Flow Rate FiO2 05/11/16 07:00 98.3 18 128/60 Room Air 05/10/16 20:53 74 98 05/08/16 23:12 6.0 Intake and Output 05/10/16 05/10/16 05/11/16 15:00 23:00 07:00 Intake Total 925 ml 225 ml 1365 ml Balance 925 ml 225 ml 1365 ml Results Result Diagram: 05/11/16 0515 05/11/16 0515 Results 24 hrs Laboratory Tests Test 05/10/16 17:08 05/11/16 05:15 Bedside Glucose 136 Alanine Aminotransferase (ALT/SGPT) 105 H Albumin 3.0 L Albumin/Globulin Ratio 1.25 Alkaline Phosphatase 148 H Anion Gap 13 Aspartate Amino Transf (AST/SGOT) 84 H Basophils # 0.0 Basophils % 0.4 Blood Urea Nitrogen 6 L Calcium Level 8.9 Carbon Dioxide Level 28 Chloride Level 105 Creatinine 0.75 Direct Bilirubin 0.00 Eosinophils # 0.1 Eosinophils % 1.7 Globulin 2.40 Glucose Level 84 # Hematocrit 30.6 L Hemoglobin 10.4 L Indirect Bilirubin 0.0 Lymphocytes # 3.7 H Lymphocytes % 70.6 H Mean Corpuscular Hemoglobin 30.6 Mean Corpuscular Hemoglobin Concent 34.0 Mean Corpuscular Volume 90.0 Mean Platelet Volume 11.7 H Monocytes # 0.3 Monocytes % 7.1 Neutrophils # 0.9 L Neutrophils % 16.7 L Nucleated Red Blood Cells # 0.0 Nucleated Red Blood Cells % 0.0 Platelet Count 178 # Potassium Level 4.2 Red Blood Count 3.40 L Red Cell Distribution Width 13.9 Sodium Level 142 Total Bilirubin 0.0 L Total Protein 5.4 L White Blood Count 5.2 Medications Medications Current Medications Ibuprofen (Motrin) 600 mg Q6 PRN PO PAIN Last administered on 05/11/16 10:48; Admin Dose 600 MG; Start 05/08/16 at 23:30 Acetaminophen (Tylenol Tab) 1,000 mg Q6H PRN PO FEVER; Start 05/08/16 at 23:30 Ondansetron HCl (Zofran Inj) 4 mg Q4 PRN IV NAUSEA AND/OR VOMITING; Start 05/08 at 23:30 Oseltamivir Phosphate (Tamiflu) 75 mg BID PO Last administered on 05/11/16 09: 19; Admin Dose 75 MG; Start 05/09/16 at 09:00 Phenol 1 lozenge 1 lozenge Q1H PRN MT throat pain; Start 05/09/16 at 07:00 Ceftriaxone Sodium (Rocephin) 50 ml @ 100 mls/hr Q24H IVPB Last administered on 05/10/16 15:00; Admin Dose 100 MLS/HR; Start 05/09/16 at 15:00 Lactobacillus Acidoph/ Bulgaricus 1 tab 1 tab TID PO Last administered on 09:19; Admin Dose 1 TAB; Start 05/09/16 at 14:30 Potassium Chloride/Lactated Ringer's (KCl/Lr) 1,000 ml @ 125 mls/hr Q8H IV Last administered on 05/11/16 11:26; Admin Dose 125 MLS/HR; Start 05/10/16 at 14:00 SRIDEVI PRAKASH NP May 11, 2016 14:35
[2016-05-11] MEDS: CEFTRIAXONE 2 GM/50 ML (PMX) 50 ML IVPB SCH (15:45)
--- NOTE | 2016-05-11 18:08 | QN ---
Documentation Comment pt doing well vss abd soft nt minimal vag bleeding a/p s/p dc for imcomplete sab strep bacteremia- on iV abs continue care. CJ YBARRA MD May 11, 2016 18:08
[2016-05-11 20:20] VITALS: BP 102/53; RESP 16
[2016-05-12 07:59] VITALS: BP 106/56; RESP 16
[2016-05-12] MEDS: OSELTAMIVIR 75 MG CAP PO SCH ×2 (08:50→21:00)
[2016-05-12] MEDS: LACTOBACILLUS CHEW TAB PO SCH ×3 (08:50→21:11)
--- NOTE | 2016-05-12 12:38 | PN ---
DATE: 05/12/2016 INFECTIOUS DISEASE PROGRESS NOTE SUBJECTIVE: No acute events. The patient is alert, feels good. Denies pain, discomfort. No fever s. MICROBIOLOGY: Repeat blood cultures from May 10 came back negative. PHYSICAL EXAMINATION: GENERAL: This is a well-developed, well-nourished, middle-aged woman who is alert, in no distress. HEENT: Head atraumatic, normocephalic. Sclerae anicteric. Buccal mucosa pink. NECK: Supple, trachea midline. CHEST: Rise symmetrical. Breath sounds clear. HEART: S1, S2. ABDOMEN: Soft. Bowel sounds present. EXTREMITIES: Without cyanosis. ASSESSMENT: 1. Strep pyogenes bacteremia secondary to urinary tract infection. 2. Influenza B virus, remains on Tamiflu. 3. Status post D and C for retained part of conception. PLAN: The patient remains stable, on appropriate antimicrobials which is Rocephin. We will continu e her on Rocephin for 3 more days and then switch to p.o. Augmentin for 7 more days to complete frankie tment for urosepsis. Dictated By: SRIDEVI PRAKASH ELECTRONICS COMMODITY MANAGER for JASVIR ORDONEZ MD NI/NTS Conf#: [id number] DID#: [id number]
[2016-05-12] MEDS: CEFTRIAXONE 2 GM/50 ML (PMX) 50 ML IVPB SCH (15:36)
[2016-05-12 20:57] VITALS: BP 103/62; RESP 16
[2016-05-12] MEDS: IBUPROFEN 600 MG TAB PO PRN (21:11)
[2016-05-13 08:16] VITALS: BP 110/53; RESP 20
--- NOTE | 2016-05-13 08:59 | QN ---
Documentation Comment POD#5 s/p D&C for retained POCs s/p medical Ab w/Group A Pyogenes Urosepsis and Influenza B Pt doing well this AM. Anxious to leave the hospital and extremely appreciative of care that has been provided. Reports minimal vaginal bleeding. Denies abdominal pain. No recent fevers, chills, dysuria. VS reviewed and wnl Gen: lying in bed, well-appearing, NAD CV: RRR, nl s1s2 Resp: CTAB Abd: soft, NTND, NABS Ext: symmetric, nontender, no edema Path SPECIMEN: Retained products of conception CLINICAL: Retained products of conception GROSS EXAMINATION: Received in formalin are multiple fragments of blood clot mixed with houser soft tissue measuring 4.5 x 4.5 x 1.5 cm in aggregate. Totally embedded in four cassettes. MICROSCOPIC DIAGNOSIS: Retained products of conception: -- Isolated chorionic villi and syncytiotrophoblasts. -- Decidua showing hemorrhage and acute inflammation. -- Secretory endometrium. -- Incidental fragment of cervical mucosa showing chronic cervicitis and immature squamous metaplasia. -- There is no evidence of malignancy. A/P: -Appreciate ID consult. Plan to continue Rocephin x7d. Will discuss w/ID today role of continued hospitalization versus home health nurse administered doses. Pt prefers to be d/c'd home without picc line or piv and would rather the home health nurse place IV daily- for remaining last 2 days- to receive antibiotic -Pt will continue Tamiflu for total of 7d RONNY HANSON MD May 13, 2016 08:58
[2016-05-13] MEDS: OSELTAMIVIR 75 MG CAP PO SCH (09:06)
[2016-05-13] MEDS: LACTOBACILLUS CHEW TAB PO SCH ×3 (09:06→14:25)
[2016-05-13] MEDS: CEFTRIAXONE 2 GM/50 ML (PMX) 50 ML IVPB SCH (14:25)
== END 2016-05-13 17:30 | disposition home health service (06) | DRG 770 ==
LOC: FTE 18:25 → SDS 23:19 → MS2 05-09 01:40 → SDS 05-09 01:40
PROVIDERS: ADMIT Obstetrics & Gynecology; ATTEND Obstetrics & Gynecology
PROC: 10D17ZZ Extraction of Products of Conception, Retained, Via Natural or Artificial Opening (ICD-10-PCS; principal; 2016-05-08 22:30)
DX: O03.38 Urinary tract infection following incomplete spontaneous abortion (principal); B95.0 Streptococcus, group A, as the cause of diseases classified elsewhere; J10.1 Influenza due to other identified influenza virus with other respiratory manifestations; D64.9 Anemia, unspecified
CPT/HCPCS: 36415; 76830; 76856; 80053; 81001; 81003; 82962; 83605; 83690; 84702; 85025; 85610; 85730; 86592; 86703; 86704; 86709; 86803; 86900; 86901; 87040; 87086; 87340; 87400; 87591; 88305; 96374; J0698; J1100; J1885; J2250; J2370; J2405; J2765; J3010; J3480; J7030; J7050; J7120

== ENCOUNTER 2016-06-16 18:01 | Emergency (ER) | payer OTHER ==
[~2016-06-16] VITALS: Ht 162.6 cm; Wt 63.5 kg
[2016-06-16 18:05] VITALS: Ht 162.6 cm; Wt 63.5 kg
[2016-06-16] MEDS ORDERED: KETOROLAC 15 MG INJ IM STA (19:23)
[2016-06-16] MEDS ORDERED: DIAZEPAM 5 MG TAB PO ONE (19:30)
[2016-06-16] MEDS ORDERED: HYDROCODONE/APAP (5/325) TAB PO ONE (19:30)
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
[2016-06-16 20:17] LABS: URINE BLOOD (Dip) POC 3+ (NEGATIVE)
--- NOTE | 2016-06-16 22:40 | RADRPT ---
PROCEDURE: XR Cervical Spine. CLINICAL INDICATION: Post traumatic neck pain TECHNIQUE: AP, lateral, and odontoid views of the cervical spine were obtained. COMPARISON: None available FINDINGS: Mineralization is within normal limits. No fracture or osseous lesion is identified. Vertebral bod ies are normal in height. Cervical lordosis is reversed. No vertebral subluxation is seen. Interv ertebral discs are normal in height except for C5-6 which is moderately narrowed with associated ant erior spondylosis. Facet joints appear maintained. Prevertebral soft tissues, predental space and atlantoaxial joint are unremarkable. RPTAT:HJJR IMPRESSION: 1. No evidence of cervical spine fracture or subluxation. 2. Reversal of the normal cervical lordosis may be from positioning but cannot exclude muscle spasm . 3. Degenerative disk disease and spondylosis at C5-6. Physician Emiliano Date Time Electronically viewed and signed by Physician Emiliano on 06/16/2016 22:40 /
[2016-06-16] MEDS ORDERED: DIAZ-90 PO (23:10)
[2016-06-16] MEDS ORDERED: NAPR-260 PO (23:11)
[2016-06-16 23:32] VITALS: BP 101/63; PULSE 73; RESP 18; TEMP 98.2
== END 2016-06-17 00:01 | disposition home or self-care (01) ==
LOC: FTE 18:01
DX: S13.4XXA Sprain of ligaments of cervical spine, initial encounter (principal); V49.40XA Driver injured in collision with unspecified motor vehicles in traffic accident, initial encounter
CPT/HCPCS: 72040; 81003; 96372; J1885; Z7502; Z7610